=== PATIENT | male | born 1995 | race Two or more races ===

== ENCOUNTER 2021-03-01 22:04 | Emergency (ER) | payer BC ==
[2021-03-01 22:12] VITALS: BP 109/71; TEMP 98.4; BMI 25.0
[2021-03-02] MEDS ORDERED: hydrOXYzine PAMOATE 50 MG CAPSULE (FP) PO ONE (00:22)
[2021-03-02] MEDS ORDERED: hydrOXYzine PAMOATE 50 MG CAPSULE (FP) ONE (00:37)
[2021-03-02 01:44] VITALS: PULSE 83
== END 2021-03-02 01:44 | disposition home or self-care (01) ==
LOC: JER 22:04
DX: M54.12 Radiculopathy, cervical region (principal)
CPT/HCPCS: 71046-TC-FY; 99284-25

== ENCOUNTER 2021-03-02 15:33 | Emergency (ER) | payer BC ==
[2021-03-02 15:59] VITALS: BP 108/68; PULSE 74; TEMP 98; BMI 21.9
[2021-03-02] MEDS ORDERED: diazePAM 5 MG TABLET PO ONE (16:50)
[2021-03-02] MEDS ORDERED: KETOROLAC TROMETHAMINE 30 MG/1 ML VIAL IVPUSH ONE (16:50)
[2021-03-02] MEDS ORDERED: KETOROLAC TROMETHAMINE 30 MG/1 ML VIAL ONE (17:36)
[2021-03-02] MEDS ORDERED: diazePAM 5 MG TABLET ONE (17:36)
[2021-03-02 18:01] LABS: BASO % 0.8 % (0-2.0); EOS % 4.8 % (0-4.5); HEMATOCRIT 43.1 % (35.4-49); HEMOGLOBIN 14.9 GM/dL (11.7-16.9); LYMPH % 38.7 % (8-40); MCH 30.3 pg (25.7-33.7); MCHC 34.6 g/dl (32.0-35.9); MEAN CELL VOLUME 87.6 fl (80-96); MEAN PLT VOLUME 8.2 fl (7.5-11.1); MONO % 9.4 % (3.8-10.2); NEUT % 46.3 % (42.8-82.8); PLATELET COUNT 200 10^3/uL (134-434); RBC 4.92 M/mm3 (4.00-5.60); WHITE BLOOD COUNT 6.6 K/mm3 (4.0-10.0)
[2021-03-02 18:21] LABS: CHLORIDE 109 mmol/L (98-107); SODIUM 143 mmol/L (136-145)
[2021-03-02 18:23] LABS: ANION GAP 2 MMOL/L (8-16); BLOOD UREA NITROGEN 19.4 mg/dL (7-18); CALCIUM 8.7 mg/dL (8.5-10.1); CO2 32 mmol/L (21-32); GLUCOSE,RANDOM 87 mg/dL (74-106)
[2021-03-02 18:26] LABS: CREATININE 0.9 mg/dL (0.55-1.3); SGOT/AST 21 U/L (15-37); SGPT/ALT 33 U/L (13-61)
[2021-03-02 18:28] LABS: BILIRUBIN,TOTAL 0.4 mg/dL (0.2-1); TOT PROT 7.1 g/dl (6.4-8.2)
[2021-03-02 18:29] LABS: ALK PHOS 60 U/L (45-117)
== END 2021-03-02 19:20 | disposition home or self-care (01) ==
LOC: JER 15:33
PROC: 3E0333Z Introduction of Anti-inflammatory into Peripheral Vein, Percutaneous Approach (ICD-10-PCS; principal; 2021-03-02)
DX: R07.9 Chest pain, unspecified (principal)
CPT/HCPCS: 36415; 71046-TC-FY; 80053; 82550; 84443; 84484; 85025; 93005; 93010; 96374; 99285-25